=== PATIENT | male | born 1970 | race African-American/Black ===

== ENCOUNTER 2017-06-10 09:51 | Emergency (ER) | payer BC ==
[~2017-06-10] VITALS: Ht 177.8 cm; Wt 128.6 kg
[2017-06-10 09:55] VITALS: TEMP 36.7; Ht 177.8 cm; Wt 128.6 kg
[2017-06-10] MEDS ORDERED: SODIUM CHLORIDE 0.9% 1000ML 1,000 ML IV STA ×2 (10:25→11:53)
[2017-06-10] MEDS ORDERED: SODIUM CHLORIDE 0.9% 1000ML 1,000 ML IV ONE (10:25)
[2017-06-10] MEDS ORDERED: ONDANSETRON INJ 2 MG/ML 2 ML VIAL IV STA (10:25)
[2017-06-10 10:27] LABS: EOS % 1.5 %; EOS ABS # 0.11 K/uL (0-0.5); HEMATOCRIT 43.6 % (42-52); HEMOGLOBIN 14.9 g/dL (14.0-18.0); IG# 0.01 K/uL (0.00-0.02); LYMPH % 8.3 %; LYMPH ABS # 0.62 K/uL (1.2-3.4); MEAN CELL VOLUME 88.8 fL (80-100); MEAN CORPUSCULAR HEMOGLOBIN 30.3 pg (25-34); MEAN CORPUSCULAR HGB CONC 34.2 g/dl (32-36); MEAN PLATELET VOLUME 11.4 fL (7.4-10.4); MONO % 10.7 %; NEUT % 79.4 %; NEUT ABS # 5.92 K/uL (1.4-6.5); PLATELET COUNT 172 K/uL (130-400); RED CELL DISTRIBUTION WIDTH CV 12.8 % (11.5-14.5); RED CELL DISTRIBUTION WIDTH SD 41.5 fL (36.4-46.3); WHITE BLOOD COUNT 7.46 K/uL (4.8-10.8)
[2017-06-10 10:50] LABS: BLOOD UREA NITROGEN 21 mg/dl (7-18); CREATININE 1.27 mg/dl (0.60-1.40); GLUCOSE 96 mg/dl (70-99)
[2017-06-10 10:51] LABS: ALBUMIN 4.1 gm/dl (3.4-5.0); CALCIUM 8.4 mg/dl (8.5-10.1); CARBON DIOXIDE 25 mmol/L (21-32); POTASSIUM 3.6 mmol/L (3.5-5.1); SODIUM 139 mmol/L (136-145); TOTAL PROTEIN 8.2 gm/dl (6.4-8.2)
[2017-06-10 10:52] LABS: ALKALINE PHOSPHATASE 67 U/L (45-117); ALT/SGPT 27 U/L (12-78); AST/SGOT 17 U/L (15-37)
[2017-06-10 13:39] VITALS: BP 151/83; PULSE 71; O2SAT 97
[2017-06-10] MEDS ORDERED: ONDA4TAB10 SL (13:40)
--- NOTE | 2017-06-10 13:48 | EMERGENCY ROOM VISIT NOTE ---
History Report prepared by Karley: rTevor Angelo Under the Supervision of: Dr. Thuan Holliday M.D. First contact with patient: 10:19 Chief Complaint: VOMITING Stated Complaint: CHILLS,VOMITING,NAUSEA,DIARRHEA Nursing Triage Summary: Patient states "last night I went to the gym and I was feeling dehydrated and lightheaded. When we left the gym, I started having the chills, nausea, vomiting and diarrhea. Today, I am still having the diarrhea and nausea this morning." Not on antibiotics. History of Present Illness The patient is a 46 year old male who presents to the Emergency Room with complaints of generalized illness beginning yesterday. His symptoms include nausea, vomiting, and diarrhea. He states that his symptoms began with lightheadedness while at the gym yesterday. He states that he developed chills as he left which have persisted. The patient states "I feel dehydrated". He notes that his diarrhea is worse than his vomiting. He denies leg swelling, or bloody stool. The patient denies recent sick contacts. He denies recent antibiotic use. He denies recent travel. The patient denies eating anything abnormal recently. He states that he had a salad for dinner last night. Source of History: patient Onset: Yesterday Position: other (generalized) Quality: other (illness) Timing: constant Associated Symptoms: + chills, + nausea, + vomiting, + diarrhea, No hematochezia Note: Positive: lightheadedness. Negative: leg swelling. Review of Systems See HPI for pertinent positives & negatives. A total of 10 systems reviewed and were otherwise negative. Past Medical & Surgical Medical Problems: (1) No Known Active Medical Problems Old medical records were reviewed. Nurse's notes were reviewed and I agree with. Family History No pertinent family history stated. Social History Smoking Status: Never Smoker Drug Use: none Marital Status: Occupation Status: employed Current/Historical Medications Scheduled Ondasetron Odt (Zofran Odt), 4 MG SL Q6H Allergies Coded Allergies: Penicillins (Unverified Allergy, Unknown, HIVES A CHILD, 06/10/17) Physical Exam Vital Signs Date Time Temp Pulse Resp B/P (MAP) Pulse Ox O2 Delivery O2 Flow Rate FiO2 06/10/17 13:39 71 18 151/83 97 Room Air 06/10/17 12:31 67 18 152/94 98 Room Air 06/10/17 11:11 65 18 156/89 96 Room Air 06/10/17 09:55 36.7 71 18 155/90 97 Room Air Physical Exam General: Non-ill appearing middle-aged male in no acute distress. HEENT: Normal cephalic atraumatic. Pupils are equal round and reactive to light. Extraocular movements are intact. Oropharynx is pink with moist mucous membranes. No swelling of the mouth lips or tongue. Neck: Supple with a midline trachea. No meningeal signs or stiffness, no JVD or bruits. No Stridor. Chest: Clear to auscultation bilaterally. No wheezes or rhonchi. No increased work of breathing. Heart: regular rate and rhythm. Abdomen: Soft nontender, nondistended without rebound guarding or rigidity. Extremities: No cyanosis clubbing or edema. No calf tenderness or assymetry Spine/Back. Non tender to palpation. No CVA tenderness Skin: Good turgor without rashes. Neurologic exam: Cranial nerves two through 12 are intact. Motor and sensation are intact and symmetrical throughout. Medical Decision & Procedures Laboratory Results 06/10/17 10:15 Red Blood Count 4.91, Mean Corpuscular Volume 88.8, Mean Corpuscular Hemoglobin 30.3, Mean Corpuscular Hemoglobin Concent 34.2, Mean Platelet Volume 11.4, Neutrophils (%) (Auto) 79.4, Lymphocytes (%) (Auto) 8.3, Monocytes (%) (Auto) 10.7, Eosinophils (%) (Auto) 1.5, Basophils (%) (Auto) 0.0, Neutrophils # (Auto ) 5.92, Lymphocytes # (Auto) 0.62, Monocytes # (Auto) 0.80, Eosinophils # (Auto ) 0.11, Basophils # (Auto) 0.00 06/10/17 10:15 Test 06/10/17 10:15 White Blood Count 7.46 K/uL (4.8-10.8) Red Blood Count 4.91 M/uL (4.7-6.1) Hemoglobin 14.9 g/dL (14.0-18.0) Hematocrit 43.6 % (42-52) Mean Corpuscular Volume 88.8 fL (80-100) Mean Corpuscular Hemoglobin 30.3 pg (25-34) Mean Corpuscular Hemoglobin Concent 34.2 g/dl (32-36) Platelet Count 172 K/uL (130-400) Mean Platelet Volume 11.4 fL (7.4-10.4) Neutrophils (%) (Auto) 79.4 % Lymphocytes (%) (Auto) 8.3 % Monocytes (%) (Auto) 10.7 % Eosinophils (%) (Auto) 1.5 % Basophils (%) (Auto) 0.0 % Neutrophils # (Auto) 5.92 K/uL (1.4-6.5) Lymphocytes # (Auto) 0.62 K/uL (1.2-3.4) Monocytes # (Auto) 0.80 K/uL (0.11-0.59) Eosinophils # (Auto) 0.11 K/uL (0-0.5) Basophils # (Auto) 0.00 K/uL (0-0.2) RDW Standard Deviation 41.5 fL (36.4-46.3) RDW Coefficient of Variation 12.8 % (11.5-14.5) Immature Granulocyte % (Auto) 0.1 % Immature Granulocyte # (Auto) 0.01 K/uL (0.00-0.02) Anion Gap 7.0 mmol/L (3-11) Est Creatinine Clear Calc Drug Dose 95.8 ml/min Estimated GFR () 76.9 Estimated GFR (Non- 66.4 BUN/Creatinine Ratio 16.5 (10-20) Calcium Level 8.4 mg/dl (8.5-10.1) Total Bilirubin 0.5 mg/dl (0.2-1) Aspartate Amino Transf (AST/SGOT) 17 U/L (15-37) Alanine Aminotransferase (ALT/SGPT) 27 U/L (12-78) Alkaline Phosphatase 67 U/L (45-117) Troponin I < 0.015 ng/ml (0-0.045) Total Protein 8.2 gm/dl (6.4-8.2) Albumin 4.1 gm/dl (3.4-5.0) Globulin 4.1 gm/dl (2.5-4.0) Albumin/Globulin Ratio 1.0 (0.9-2) Laboratory studies as stated above per my review. Medications Administered Medications (Trade) Dose Ordered Sig/Debi Route Start Time Stop Time Status Last Admin Dose Admin Sodium Chloride 1,000 ml @ 999 mls/hr Q1H1M STAT IV 06/10/17 10:25 06/10/17 11:25 DC 06/10/17 10:43 999 MLS/HR Sodium Chloride 1,000 ml @ 200 mls/hr Q5H ONCE IV 06/10/17 10:25 06/10/17 14:10 DC 06/10/17 10:43 200 MLS/HR Ondansetron HCl (Zofran Inj) 4 mg NOW STAT IV 06/10/17 10:25 06/10/17 10:27 DC 06/10/17 10:43 4 MG Sodium Chloride 1,000 ml @ 999 mls/hr Q1H1M STAT IV 06/10/17 11:53 06/10/17 12:53 DC 06/10/17 12:06 999 MLS/HR ECG Per My Interpretation Indication: vomiting Rate (beats per minute): 66 Rhythm: normal sinus Findings: other (Non-specific T-wave abnormality. No PVCs. ) Comparison ECG Date: no prior available ED Course 1021: Past medical records reviewed. The patient was evaluated in room B2, and a complete history and physical examination were performed. 1025: Ordered Zofran Inj 4 mg IV, Sodium Chloride 1000 ml @ 200 mls/hr IV, Sodium Chloride 1000 ml @ 999 mls/hr IV. 1151: I reassessed the patient. He is resting comfortably. 1153: Ordered Sodium Chloride 1000 ml @ 999 mls/hr IV. 1345: Upon reevaluation, the patient is resting comfortably. I discussed the results and treatment plan with him. He verbalized agreement of the treatment plan. The patient was discharged home. Medical Decision Differentials include, but are not limited to; gastroenteritis, dehydration, infection, cardiac disease and electrolyte or metabolic abnormality. This patient comes in as described above. He was placed in room B2. He has had nausea vomiting diarrhea abdominal cramping. He felt dizzy. His first noticed this after he worked out and has been persistent worries a lot of diarrhea. No blood in his stool or emesis. His abdomen is benign amd he looks well on exam. he has no headache or neurologic symptoms. IV access established and he received 2 L of IV normal saline while he was here and 4 mg Zofran IV and is doing much better and he looks great upon reassessment and his abdomen remains benign. EKG is unremarkable and there is nothing to suggest acute electrolyte or metabolic abnormalities. He has nothing to suggest appendicitis. I think this is a gastroenteritis. He is to rest and drink plenty of fluids have a mild diet. Use Zofran if needed for nausea or vomiting. For diarrhea he can use [id number] Imodium and he was told to return to the ER if: Worsening of symptoms, fever or chills, any new problems or concerns. He is happy the plan and discharged to home. Medication Reconcilliation Current Medication List: was personally reviewed by me Blood Pressure Screening Patient's blood pressure: Elevated blood pressure Blood pressure disposition: Referred to PCP Impression Primary Impression: Nausea, vomiting, and diarrhea Scribe Attestation The scribe's documentation has been prepared under my direction and personally reviewed by me in its entirety. I confirm that the note above accurately reflects all work, treatment, procedures, and medical decision making performed by me. Departure Information Dispostion Home / Self-Care Prescriptions Ondasetron Odt (ZOFRAN ODT) 4 Mg Tab 4 MG SL Q6H for Nausea, #10 TAB Prov: Thuan Holliday M.D. 06/10/17 Referrals No Doctor, Assigned (PCP) Forms HOME CARE DOCUMENTATION FORM, IMPORTANT VISIT INFORMATION Patient Instructions My [facility] Additional Instructions Rest Drink plenty of fluids Use Zofran 4 mg every 8 hours as needed Return if: Worsening of symptoms, shortness of breath, fever or chills, worsening symptoms, any new problems or concerns Use [id number] Imodium if needed for diarrhea
== END 2017-06-10 13:55 | disposition home or self-care (01) ==
LOC: C.EDB 09:52
DX: R11.2 Nausea with vomiting, unspecified (principal); R19.7 Diarrhea, unspecified; Z88.0 Allergy status to penicillin